=== PATIENT | female | born 1950 | race Two or more races ===

== ENCOUNTER → 2022-06-11 09:09 | Outpatient (BNVA) | payer MEDICARE, SELFPAY | PROVIDERS: PCP Internal Medicine; Visit Provider Student in an Organized Health Care Education/Training Program | DX: M54.2 Cervicalgia (principal); M70.62 Trochanteric bursitis, left hip; M25.50 Pain in unspecified joint; M16.0 Bilateral primary osteoarthritis of hip; M17.0 Bilateral primary osteoarthritis of knee; M12.811 Other specific arthropathies, not elsewhere classified, right shoulder; M12.812 Other specific arthropathies, not elsewhere classified, left shoulder; M62.830 Muscle spasm of back; R51.9 Headache, unspecified; Z79.899 Other long term (current) drug therapy | CPT/HCPCS: 99202 ==

== ENCOUNTER 2022-06-11 10:49 | Outpatient (REF) | payer OTHER, SELFPAY ==
--- NOTE | ~2022-06-11 | XR_ITS ---
EXAMINATION: XR HIP, BILATERAL , CLINICAL INFORMATION: Pain COMPARISON: None available at the time of this dictation. TECHNIQUE: Frontal and lateral views of the hip acquired. , AP pelvis FINDINGS: There is no evidence of acute fracture or dislocation. There are mild degenerative arthritic changes of the hip evident by sclerotic changes of the acetabular roof and narrowing of the joint space. Symphysis pubis is intact. Adjacent pubic rami are intact. Surrounding soft tissues are unremarkable. XR/XR hips MORRO min 3V IMPRESSION: Mild degenerative osteoarthritic changes of both hip joints. There are vascular calcifications. .
--- NOTE | ~2022-06-11 | XR_ITS ---
EXAMINATION:XR cervical spine 3V CLINICAL INFORMATION: Cervalgia COMPARISON: None TECHNIQUE: 3 views of the cervical spine were obtained. Frontal lateral and open-mouth odontoid view FINDINGS: 7 cervical vertebrae identified maintaining normal height and alignments.. Intervertebral disc spaces are preserved.. No prevertebral soft tissue swelling. Surrounding soft tissue and included lung apices are clear. XR/XR cervical spine 3V IMPRESSION: No significant osseous changes to explain patient's pain symptoms No evidence of ankylosis cervical spine.
--- NOTE | ~2022-06-11 | XR_ITS ---
EXAMINATIONS: XR hand wrist LT CLINICAL INFORMATION: Reason for Exam M25.50 - Pain in unspecified joint COMPARISON: None VIEWS: Frontal lateral and oblique FINDINGS: There are degenerative osteoarthritic changes involving first carpometacarpal joint. There is no evidence of acute fracture or dislocation. The distal radius is intact. The radiocarpal, intercarpal and carpal/metacarpal joints are normal. Ulnar styloid is intact. The scapholunate joint is normal. The lunate is properly positioned. The jmyimd-uord-hciqtqge access is normal. The scaphoid bone is a properly articulating. There are vascular calcifications. XR/XR hand wrist LT IMPRESSION: Mild degenerative osteoarthritic changes first CMC joint. Vascular calcifications.
--- NOTE | ~2022-06-11 | XR_ITS ---
EXAMINATION: XR HAND, BILATERAL CLINICAL INFORMATION: Pain COMPARISON: None available at the time of this dictation. TECHNIQUE: Frontal lateral oblique views of the hand were obtained. FINDINGS: Right hand There are arthritic changes of interphalangeal joints all fingers especially involving the distal interphalangeal joints of the second through fifth finger and the PIP of the fifth finger. Loss of joint space and developed osteophyte from articular edges, gullwing appearance deformity noticed in the distal interphalangeal joint of the third and fourth finger, raise possibility of erosive arthritis. There are no erosions. There are vascular calcifications. Similar pattern seen on the left hand involving the PIP and DIP of the second, third fourth and fifth fingers. First finger is less involved. There is probably fusion arthrodesis of the third left DIP. The metacarpophalangeal joints are relatively spared on both sides. XR/XR hand wrist RT IMPRESSION: Arthritic changes involving the PIP and DIP of multiple fingers as described above, the pattern and distribution raise the possibility of erosive arthritis versus psoriatic arthritis .
--- NOTE | ~2022-06-11 | XR_ITS ---
EXAMINATION: XR SACROILIAC JOINTS CLINICAL INFORMATION: Pain COMPARISON: None TECHNIQUE: 3 views of the sacroiliac joints FINDINGS: Mild degenerative osteoarthritic changes of both SI joints evident by sclerotic changes of the articular surfaces on both sacral and iliac side, no evidence of ankylosis. There are vascular calcifications. XR/XR sacroiliac joint 1-2V IMPRESSION: Mild arthritic changes of both SI joints.
[2022-06-11 13:18] LABS: MANUAL DIFF FLAG NO
[2022-06-11 13:27] LABS: Basophils Percent Auto 0.5 % (0-2); Eosinophils Absolute Auto 0.2 X10*3/uL (0.0-0.4); Eosinophils Percent Auto 2.6 % (0-4); Hematocrit 41.3 % (37.0-47.0); Hemoglobin 12.8 g/dl (12.0-16.0); Imm Gran Abs Auto 0.03 X10*3/uL (0.00-0.03); Imm Gran Pct Auto 0.4 % (0.0-0.4); Lymphocytes Percent Auto 40.7 % (20-40); Mean Corpuscular Hemoglobin 28.7 pg (27.0-33.0); Mean Corpuscular Volume 92.6 fL (80.0-98.0); Mean Platelet Volume 10.8 fL (9.4-12.3); Monocytes Absolute Auto 0.6 X10*3/uL (0.1-1.2); Monocytes Percent Auto 7.7 % (2-11); Neutrophils Absolute Auto 3.6 x10*3/uL (2.0-8.3); Neutrophils Percent Auto 48.1 % (45-73); Platelet Count 246 X10*3/uL (160-400); Red Blood Count 4.46 X10*6/uL (4.20-5.50); Red Cell Distribution Width 12.7 % (11.0-16.0); White Blood Count 7.4 X10*3/uL (4.8-10.8)
[2022-06-11 13:53] LABS: Alanine Aminotransferase 36 U/L (0-31); Albumin Level 3.9 g/dL (3.5-5.0); Alkaline Phosphatase 76 U/L (39-117); Anion Gap 14 (12-20); Aspartate Amino Transferase 33 U/L (5-31); Bilirubin Total 0.2 mg/dL (0.0-1.0); Blood Urea Nitrogen 23 mg/dL (9-16); Calcium 9.1 mg/dL (8.4-10.2); Carbon Dioxide 22 mmol/L (22-29); Chloride 110 mmol/L (96-108); Estimated Glomerular Filt Rate 51; Glucose Random 135 mg/dL (60-115); Potassium 4.3 mmol/L (3.3-5.1); Sodium 142 mmol/L (135-145); Total Protein 7.3 g/dL (6.5-8.0)
[2022-06-11 14:01] LABS: Rheumatoid Factor < 15.0 IU/mL (<15.0)
[2022-06-11 14:21] LABS: Erythrocyte Sedimentation Rate 18 MM/HR (0-20)
[2022-06-13 18:32] LABS: Cyclic Citrullinated Peptide <16 UNITS
== END 2022-06-11 10:50 | disposition home or self-care (01) ==
LOC: HO.10HDL 10:49
PROVIDERS: Visit Provider Student in an Organized Health Care Education/Training Program
DX: M16.0 Bilateral primary osteoarthritis of hip (principal); M17.0 Bilateral primary osteoarthritis of knee; M70.62 Trochanteric bursitis, left hip; M54.2 Cervicalgia; M25.50 Pain in unspecified joint; R51.9 Headache, unspecified
CPT/HCPCS: 36415; 72040; 72200; 73110; 73130; 73522; 80053; 82550; 85025; 85652; 86140; 86200; 86431

== ENCOUNTER → 2022-06-28 10:05 | Outpatient (BNVA) | payer OTHER, SELFPAY | PROVIDERS: PCP Internal Medicine; Visit Provider Orthopaedic Surgery | DX: M54.16 Radiculopathy, lumbar region (principal); G89.29 Other chronic pain | CPT/HCPCS: 99202 ==

== ENCOUNTER → 2022-07-12 09:16 | Outpatient (BNVA) | payer OTHER, SELFPAY | PROVIDERS: PCP Internal Medicine; Visit Provider Student in an Organized Health Care Education/Training Program | DX: Z13.820 Encounter for screening for osteoporosis (principal); M15.9 Polyosteoarthritis, unspecified; M47.26 Other spondylosis with radiculopathy, lumbar region; R74.01 Elevation of levels of liver transaminase levels | CPT/HCPCS: 99212 ==

== ENCOUNTER 2022-07-24 13:53 | Outpatient (REF) | payer OTHER, SELFPAY ==
--- NOTE | ~2022-07-24 | MM_ITS ---
EXAMINATION: BONE DENSITOMETRY CLINICAL INDICATION: Screening for osteoporosis. COMPARISON: None (current study represents initial baseline exam). TECHNIQUE: Using a [employer] DXA System (software version: 13.1) manufactured by [employer], dual-energy x-ray absorptiometry was performed of the lumbar spine and left hip. The images are of good technical quality. Summary results are attached. FINDINGS: AP SPINE L1-L4 (excluding L3): The data of L1-L4 has been changed to exclude the L3 vertebral body, because focal high attenuation lesion or degenerative change at this level may cause overestimation of lumbar spine density. BMD 1.311 g/cm2, Z-score 2.3, T-score 1.2, normal. LEFT FEMUR, NECK: BMD 0.920 g/cm2, Z-score 0.6, T-score -0.8, normal. LEFT FEMUR, TOTAL: BMD 1.143 g/cm2, Z-score 2.3, T-score 1.1, normal. IDENTIFIED RISK FACTORS: Menopause, height loss, low calcium intake, osteoporosis, recurrent falls, renal, secondary osteoporosis, family history (parent hip fracture). HISTORY OF FRACTURE: None listed. MEDICATIONS: Vitamin D. MM/XR DEXA axial skeleton IMPRESSION: 1. Focal high attenuation lesion or localized degenerative change L3. Recommend plain radiograph spine for correlation. 2. Normal bone density based on the lowest T-score value of -0.8 in the femoral neck applying World Health Organization criteria. 3. 10-YEAR FRACTURE RISK PREDICTION, FRAX: According to the guidelines, FRAX calculation should only be performed on patients in the osteopenia bone density category. Therefore, FRAX was not performed on this patient. 4. Treatment Recommendations: NOF guidelines recommend consideration for treatment in postmenopausal women and men age 50 and older presenting with the following: -A hip or vertebral (clinical or morphometric) fracture. -T-score less than or equal to -2.5 at the femoral neck or spine after appropriate evaluation to exclude secondary causes. -Low bone mass at the hip or spine and a 10-year fracture probability by FRAX of greater than or equal to 3% for hip fracture or greater than or equal to 20% for major osteoporotic fracture based on the [place] adapted WHO algorithm. 5. Other Recommendations: All treatment decisions require clinical judgment and consideration of individual patient factors, including patient preferences, comorbidities, previous drug use, risk factors not captured in the FRAX model (e.g. frailty, falls, vitamin D deficiency, increased bone turnover, interval significant decline in bone density) and possible under or overestimation of fracture risk by FRAX. FUTURE SCAN RECOMMENDATION: People with diagnosed cases of osteoporosis or at high risk for fracture should have regular bone mineral density tests. For patients eligible for Medicare, routine testing is allowed once every 2 years. The testing frequency can be increased to one year for patients who have rapidly progressing disease, those who are receiving or discontinuing medical therapy to restore bone mass, or have additional risk factors.
== END 2022-07-24 13:54 | disposition home or self-care (01) ==
LOC: HO.MAMMO 13:53
PROVIDERS: PCP Student in an Organized Health Care Education/Training Program; Visit Provider Nurse Practitioner Family
DX: Z13.820 Encounter for screening for osteoporosis (principal); Z78.0 Asymptomatic menopausal state
CPT/HCPCS: 77080

== ENCOUNTER 2022-08-16 11:00 | Outpatient (RCR) | payer OTHER, SELFPAY ==
[2022-07-09 10:55] VITALS: BP 141/65; PULSE 61
--- NOTE | 2022-07-09 11:57 | MHC.PT.EP ---
[facility] [place] Office [place] Office [place] Office [address] [phone] F: [phone] F: [phone] F: [phone] F: [phone] Physical Therapy Plan of Care Date of Evaluation: Date of Surgery: NA Diagnosis: Other specific arthropathies, not elsewhere classified, R shoulder and L shoulder Assessment: Soniya is a 71 year old female who is referred to PT for other specific arthropathies, not elsewhere classified R shoulder and L shoulder . Soniya reports of having pain in B shoulder for about 3-4 months. She denies any recent trauma or fall. Reports of having more pain in R shoulder compared to the L. On PT examination presents with 8/10 pain in B shoulder, TTP over B UT, levator scap, and joint line, decreased shoulder ROM, decreased shoulder and scap strength, and impaired posture. Due to these impairments she has pain and difficulty with ADLS requiring her to reach over head and carry weight. She would benefit from skilled PT to address the aforementioned impairments and improve tolerance to functional activities. Frequency and Duration: The patient will be seen 2/week for 5 weeks Short Term Goals: 1. Pt will have 50% decrease in pain which will enable her to sleep through the night in 2 weeks. 2. Pt will be able to move shoulder through all planes of motion without pain which will enable to her to dress her upper body independently in 3 weeks Nursing Home Goals: 1. Pt will demonstrate an increase in muscle strength by 1 grade which will enable her to perform self care activities without difficulties in 4 weeks. 2. Pt will be independent with all HEPs for symptom management and maintenance following d/c in 5 weeks. Treatment Plan: Modalities to reduce pain, spasms and effusion. Manual therapy to restore motion and function. Therapeutic exercise to improve strength and flexibility. Neuromuscular re-education for posture and balance. Therapeutic activities to return to functional activities of daily living. Electronically signed by: Hollie Lawton PT DPT Please sign and return to therapist. Thank you for your referral.
--- NOTE | 2022-08-16 15:52 | MHC.PT.DC ---
[facility] [place] Office [place] Office [place] Office [address]iella [address] [phone] F: [phone] F: [phone] F: [phone] F: [phone] Physical Therapy Discharge Report Diagnosis: Other specific arthropathies, not elsewhere classified, R shoulder and L shoulder Date of Surgery: NA Date of Evaluation: 07/09/22 Date of Discharge: 08/16/22 Treatments to Date: 10 Cancellations to Date: 1 No Shows to Date: 1 Discharge Status: Achieved Goals Improved Function Independent with HEP Discharge Summary: Patient completed course of approved PT. SHe reports she feels ready for discharge as right now she has very little pain and has an easier time doing activities at home like getting dressed, reaching her head to wash her hair and reaching into her cabinets in the kitchen. She presents with increased ROM, strength and improved functional mobility and less pain. She reports having band and print out of HEP at home. Electronically signed by: Sam Wen, PT, DPT Please sign and return to therapist. Thank you for your referral.
== END 2022-08-16 15:57 | disposition home or self-care (01) ==
LOC: HO.PT 11:00
PROVIDERS: Visit Provider Student in an Organized Health Care Education/Training Program
DX: M12.811 Other specific arthropathies, not elsewhere classified, right shoulder (principal); M12.812 Other specific arthropathies, not elsewhere classified, left shoulder
CPT/HCPCS: 97110; 97140; 97161

== ENCOUNTER 2022-08-16 12:12 | Outpatient (REF) | payer OTHER, SELFPAY ==
[2022-08-22 14:47] LABS: Vitamin D 25-OH, D2 <4 ng/mL; Vitamin D 25-OH, D3 39 ng/mL; Vitamin D 25-OH, Total 39 ng/mL (30-100)
== END 2022-08-16 12:13 | disposition home or self-care (01) ==
LOC: HO.10HDL 12:12
PROVIDERS: Visit Provider Student in an Organized Health Care Education/Training Program
DX: Z13.21 Encounter for screening for nutritional disorder (principal)
CPT/HCPCS: 36415; 82306

== ENCOUNTER → 2022-08-23 09:56 | Outpatient (BNVA) | payer OTHER, SELFPAY | PROVIDERS: PCP Physician Assistant; Visit Provider Student in an Organized Health Care Education/Training Program | DX: M47.26 Other spondylosis with radiculopathy, lumbar region (principal); M15.9 Polyosteoarthritis, unspecified; R74.01 Elevation of levels of liver transaminase levels; N95.1 Menopausal and female climacteric states; M54.50 Low back pain, unspecified | CPT/HCPCS: 99212 ==

== ENCOUNTER 2022-09-27 13:49 | Outpatient (REF) | payer OTHER, SELFPAY ==
--- NOTE | ~2022-09-27 | MM_ITS ---
EXAMINATION: BONE DENSITOMETRY CLINICAL INDICATION: Menopause. COMPARISON: Bone densitometry spine and left hip 07/24/2022. Current exam represents baseline for forearm measurement. TECHNIQUE: Using a [employer] DXA System (software version: 13.1) manufactured by [employer], dual-energy x-ray absorptiometry was performed of the left forearm radius 33%. The images are of good technical quality. Summary results are attached. FINDINGS: LEFT FOREARM RADIUS 33%: BMD 0.897 g/cm2, Z-score 2.4, T-score 0.2, normal. Prior: Forearm not previously measured. IDENTIFIED RISK FACTORS: Menopause, height loss, family history (parent hip fracture), low calcium intake, renal, osteoporosis, recurrent falls, secondary osteoporosis. HISTORY OF FRACTURE: None listed. MEDICATIONS: None listed. MM/XR DEXA appendicular skeleton IMPRESSION: 1. DIAGNOSIS: Normal bone density in the forearm radius 33% with T-score 0.2 applying World Health Organization criteria. 2. 10-YEAR FRACTURE RISK PREDICTION, FRAX: Not performed in this patient without a femoral neck BMD measurement. 3. Treatment Recommendations: NOF guidelines recommend consideration for treatment in postmenopausal women and men age 50 and older presenting with the following: -A hip or vertebral (clinical or morphometric) fracture. -T-score less than or equal to -2.5 at the femoral neck or spine after appropriate evaluation to exclude secondary causes. -Low bone mass at the hip or spine and a 10-year fracture probability by FRAX of greater than or equal to 3% for hip fracture or greater than or equal to 20% for major osteoporotic fracture based on the [place] adapted WHO algorithm. 4. Other Recommendations: All treatment decisions require clinical judgment and consideration of individual patient factors, including patient preferences, comorbidities, previous drug use, risk factors not captured in the FRAX model (e.g. frailty, falls, vitamin D deficiency, increased bone turnover, interval significant decline in bone density) and possible under or overestimation of fracture risk by FRAX. FUTURE SCAN RECOMMENDATION: People with diagnosed cases of osteoporosis or at high risk for fracture should have regular bone mineral density tests. For patients eligible for Medicare, routine testing is allowed once every 2 years. The testing frequency can be increased to one year for patients who have rapidly progressing disease, those who are receiving or discontinuing medical therapy to restore bone mass, or have additional risk factors.
== END 2022-09-27 13:50 | disposition home or self-care (01) ==
LOC: HO.MAMMO 13:49
PROVIDERS: PCP Student in an Organized Health Care Education/Training Program; Visit Provider Student in an Organized Health Care Education/Training Program
DX: Z13.820 Encounter for screening for osteoporosis (principal); Z78.0 Asymptomatic menopausal state
CPT/HCPCS: 77081

== ENCOUNTER 2023-08-22 09:52 | Outpatient (AMB) | payer OTHER, SELFPAY ==
--- NOTE | 2023-08-22 10:04 | MHC.OFFVIS ---
Intake Vital Signs 08/22/23 10:05 Height 5 ft 4 in Weight 185 lb 10.067 oz BMI 31.9 BP 140/70 H Blood Pressure Location Rt brachial Position Sitting Pulse 75 Pulse Source Pulse Oximeter Temp 97.2 F Temp Source Skin Pulse Oximetry (%) 99 Oxygen Delivery Method Room Air Intake Visit Reasons: OA Intake Note: Pt presents today for 1 year follow up and bone density results. She continues to use voltaren gel an tylenol to manage pains. She did not do x-rays ordered at last visit and has not scheduled with pain mgmt yet for her lumbar spine pain. Most recent PCP note requested. Reports dental procedure yesterday. Tie Man Required: Yes Tie Man Language: Fire Adjuster Name: Sebas [id number] Information Interpreted: clinical only Accompanied by: Self / Same As Patient Allergies almond oil Adverse Reaction (Unknown, Verified 08/22/23 10:09) Unknown aspirin Adverse Reaction (Unknown, Verified 08/22/23 10:09) Unknown lactose Adverse Reaction (Unknown, Verified 08/22/23 10:09) Unknown pear Adverse Reaction (Unknown, Verified 08/22/23 10:09) Unknown Apple Allergy (Severe, Uncoded 08/22/23 10:09) Anaphylaxis Medication List - Last Reconciled 08/22/23 by Silviano Black MD acetaminophen (Tylenol) 650 mg PO Q4H PRN albuterol sulfate 90 mcg/actuation 2 puffs inhalation Q6H PRN amoxicillin 500 mg PO TID aspirin (Adult Low Dose Aspirin) 81 mg PO DAILY cholecalciferol (vitamin D3) 50 mcg PO DAILY cyclobenzaprine 5 mg PO BEDTIME diclofenac sodium 1% (Arthritis Pain (diclofenac)) 2 grams topical QID dulaglutide (Trulicity) mg subcut duloxetine 120 mg PO DAILY fluticasone propion-salmeterol 250-50 mcg/dose (Wixela Inhub) 1 inh inhalation Q12H fluticasone propionate 50 mcg/actuation (Allergy Relief (fluticasone)) 1 spray intranasal DAILY gabapentin 300 mg PO TID ibuprofen 600 mg PO TID insulin aspart U-100 (Novolog FlexPen U-100 Insulin aspart) subcut insulin lispro (Humalog KwikPen (U-100) Insulin) 1 sliding scale dose subcut USEASDIRECTD metformin ER 500 mg PO DAILY simvastatin 40 mg PO BEDTIME HPI HPI Comments History of Present Illness Details 73-year-old female presents for follow-up. She has generalized osteoarthritis. 2 months ago she had a corticosteroid injection in her right knee which is helping by Pain Management. Now she is having more left knee pain. She also has pain in her left lower back and her left hip. She was referred for physical therapy by Pain Management. 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 and duloxetine 60 mg Twice daily She was evaluated by mathematician research Dr. Pulido on 10/17 labs showed normal ESR and CRP.? Right shoulder x-ray showed mild degenerative changes. She received steroid injection in the neck pain subacromial space.? Also found to have bilateral hand OA.? No autoimmune rheumatic condition was found Today patient states she has been having right neck pain upper back pain as well as left neck pain. Pain radiates to her shoulders, elbows and hands. She is also complaining of mild right temporal pain but no blurry vision no jaw pain. No jaw or tongue claudication. She also has pain in both wrists and both hands and is worried about her hands deforming. She has had left hip pain for many years, stated that she has had a fall more than 30 years ago. She has had left hip steroid injection more than 6 years ago with about 6 months relief. She states she has had numerous gel injections of both knees and her insurance would not approve any more. 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 Peripheral neuropathy Osteoarthritis involving multiple joints on both sides of body CKD (chronic kidney disease) Dyslipidemia Diabetes Hypertension Surgical History History of lung biopsy H/O sigmoidoscopy Hx of colonoscopy History of cardiac catheterization Hx of section H/O angioplasty History of rectal surgery History of surgery Family History Mother Hypertension Diabetes Father Hypertension Diabetes Cirrhosis Daughter Diabetes Arthritis Brother Hypertension Maternal Aunt Breast cancer Social History Household Members Other:: lives alone Housing: Apartment Do you presently have visiting nurse or other home services: Yes Alcohol intake: never Patient Tobacco Use Status: Never used Tobacco e-Cigarette/Vaping Use: Never Used Current occupational status: retired Review of Systems [facility] Reports back pain, Reports arthralgias and Reports stiffness Physical Exam Vital Signs: Last Vital Signs Temp 97.2 F 08/22/23 10:05 Pulse 75 08/22/23 10:05 BP 140/70 H 08/22/23 10:05 Pulse Ox 99 08/22/23 10:05 Oxygen Delivery Method Room Air 08/22/23 10:05 BMI result Body Mass Index 31.9 Const Other: Appears stated age, Walks using a walker with a stooped posture General: cooperative and comfortable Limitations: ambulation with walker HEENT Other: No oral ulcers Bilateral superficial temporal artery pulsation palpable, no temporal area tenderness to exam, no TMJ tenderness Resp Effort & Inspection: able to speak in complete sentences Back/Spine/Pelvis Other: Kyphosis Extrem Other: Bilateral OA changes with Heberden's and Chris's nodes, some tender Chris's nodes but no joint swelling, mild diabetic cheiroarthropathy. Results Reviewed Results Reviewed: EXAMINATION: BONE DENSITOMETRY CLINICAL INDICATION: Menopause. COMPARISON: Bone densitometry spine and left hip 07/24/2022. Current exam represents baseline for forearm measurement. TECHNIQUE: Using a [employer] DXA System (software version: 13.1) manufactured by [employer], dual-energy x-ray absorptiometry was performed of the left forearm radius 33%. The images are of good technical quality. Summary results are attached. FINDINGS: LEFT FOREARM RADIUS 33%: BMD 0.897 g/cm2, Z-score 2.4, T-score 0.2, normal. Prior: Forearm not previously measured. IDENTIFIED RISK FACTORS: Menopause, height loss, family history (parent hip fracture), low calcium intake, renal, osteoporosis, recurrent falls, secondary osteoporosis. HISTORY OF FRACTURE: None listed. MEDICATIONS: None listed. MM/XR DEXA appendicular skeleton IMPRESSION: 1. DIAGNOSIS: Normal bone density in the forearm radius 33% with T-score 0.2 applying World Health Organization criteria. 2. 10-YEAR FRACTURE RISK PREDICTION, FRAX: Not performed in this patient without a femoral neck BMD measurement. 3. Treatment Recommendations: NOF guidelines recommend consideration for treatment in postmenopausal women and men age 50 and older presenting with the following: -A hip or vertebral (clinical or morphometric) fracture. -T-score less than or equal to -2.5 at the femoral neck or spine after appropriate evaluation to exclude secondary causes. -Low bone mass at the hip or spine and a 10-year fracture probability by FRAX of greater than or equal to 3% for hip fracture or greater than or equal to 20% for major osteoporotic fracture based on the [place] adapted WHO algorithm. 4. Other Recommendations: All treatment decisions require clinical judgment and consideration of individual patient factors, including patient preferences, comorbidities, previous drug use, risk factors not captured in the FRAX model (e.g. frailty, falls, vitamin D deficiency, increased bone turnover, interval significant decline in bone density) and possible under or overestimation of fracture risk by FRAX. FUTURE SCAN RECOMMENDATION: People with diagnosed cases of osteoporosis or at high risk for fracture should have regular bone mineral density tests. For patients eligible for Medicare, routine testing is allowed once every 2 years. The testing frequency can be increased to one year for patients who have rapidly progressing disease, those who are receiving or discontinuing medical therapy to restore bone mass, or have additional risk factors. Dictated By: Srinivasan Meneses MD Signed By: <Electronically signed by Srinivasan Meneses MD in OV> 09/27/22 [id number] Assessment & Plan Assessment & Plan (1) Osteoarthritis involving multiple joints on both sides of body: Code(s): M15.9 - Polyosteoarthritis, unspecified Plan: I reviewed her SI joint, hip, hand, wrist, knees, cervical spine x-rays which are all consistent with degenerative arthritis. No signs of inflammatory arthropathy. For her hand pain she can continue to use Voltaren gel and Tylenol as needed. (2) Degenerative joint disease (DJD) of lumbar spine: Code(s): M47.816 - Spondylosis without myelopathy or radiculopathy, lumbar region Qualifiers: Spinal osteoarthritis complication: with radiculopathy Qualified Code(s): M47.26 - Other spondylosis with radiculopathy, lumbar region Plan: Patient was evaluated by Pain Management and referred for PT. continue to follow-up with pain management Her DEXA scan 2021 showed a focal high attenuation lesion at L3, I ordered L-spine x-rays but patient did not do them (3) Screening for osteoporosis: Code(s): Z13.820 - Encounter for screening for osteoporosis Plan: DEXA scan showed no signs of osteoporosis. DEXA can be repeated in a few years. Follow-up with PCP. Follow-up with me as needed Plan I spent 15 minutes reviewing patient's chart, evaluating patient, counseling patient and documenting in the chart Coding Level of Care Code Est Pt Level 3 (50789) Diagnoses Osteoarthritis involving multiple joints on both sides of body M15.9 Osteoarthritis of spine with radiculopathy, lumbar region M47.26 Spinal osteoarthritis complication: with radiculopathy Screening for osteoporosis Z13.820
[2023-08-22 10:05] VITALS: BP 140/70; PULSE 75; TEMP 36.2; O2SAT 99; BMI 31.9
== END 2023-08-22 10:33 | disposition home or self-care (01) ==
PROVIDERS: PCP Physician Assistant; Visit Provider Student in an Organized Health Care Education/Training Program
DX: M15.9 Polyosteoarthritis, unspecified (principal); M47.26 Other spondylosis with radiculopathy, lumbar region; Z13.820 Encounter for screening for osteoporosis
CPT/HCPCS: 99213

== ENCOUNTER → 2023-08-22 09:52 | Outpatient (BNVA) | payer OTHER, SELFPAY | PROVIDERS: Visit Provider Student in an Organized Health Care Education/Training Program | DX: Z13.820 Encounter for screening for osteoporosis (principal); M15.9 Polyosteoarthritis, unspecified; M47.26 Other spondylosis with radiculopathy, lumbar region | CPT/HCPCS: 99212 ==